=== PATIENT | male | born 1995 | race Caucasian/White ===

== ENCOUNTER 2021-12-20 17:57 | Emergency (ER) | payer OTHER ==
[~2021-12-20] VITALS: Ht 175.3 cm; Wt 60.8 kg
[2021-12-20 18:05] VITALS: BP_SYST 142
--- NOTE | 2021-12-20 19:10 | NUR ---
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
--- NOTE | 2021-12-20 19:15 | NUR ---
Dr Nolen evaluating patient at bedside
[2021-12-20] MEDS ORDERED: AUG875 PO (19:19)
[2021-12-20] MEDS ORDERED: IBUP-1969 PO (19:19)
[2021-12-20] MEDS ORDERED: OXYM-21 NS (19:19)
[2021-12-20 19:37] VITALS: BP_SYST 142
--- NOTE | 2021-12-20 19:39 | NUR ---
Patient given written and verbal discharge instructions and verbalizes understanding. ER MD discussed with patient the results and treatment provided. Patient in stable condition. ID arm band removed. Rx of Ibuprofen ,Augmentin, Nasal spray given. Patient educated on pain management and to follow up with PMD. Pain Scale 3/10 . Opportunity for questions provided and answered. Medication side effect fact sheet provided.
== END 2021-12-20 19:37 | disposition home or self-care (01) ==
LOC: SED 17:57
DX: S02.2XXA Fracture of nasal bones, initial encounter for closed fracture (principal); Y04.0XXA Assault by unarmed brawl or fight, initial encounter; Y93.89 Activity, other specified; Y92.89 Other specified places as the place of occurrence of the external cause; Y99.8 Other external cause status
CPT/HCPCS: 70450-TC; 70486-TC; 76376; 99284

== ENCOUNTER 2022-03-08 14:30 | Emergency (ER) | payer OTHER ==
[~2022-03-08] VITALS: Ht 175.3 cm; Wt 72.6 kg
[~2022-03-08 14:30] MED LIST: AUG875 PO; IBUP-1969 PO; OXYM-21 NS
[2022-03-08 15:08] VITALS: BP_SYST 128
[2022-03-08 16:07] LABS: BASOPHILS % (AUTO) 0.3 % (0.0-2.0); EOSINOPHILS % (AUTO) 0.3 % (0.0-4.0); HEMATOCRIT 41.5 % (36-54); LYMPHOCYTES # (AUTO) 1.1 K/uL (1.0-5.5); LYMPHOCYTES % (AUTO) 13.8 % (20.5-51.5); MEAN CORPUSCULAR VOLUME 89 fL (79.0-98.0); MONOCYTES # (AUTO) 0.5 K/uL (0.0-1.0); MONOCYTES % (AUTO) 5.8 % (1.7-9.3); NEUTROPHILS # (AUTO) 6.4 K/uL (1.8-7.7); NEUTROPHILS % (AUTO) 79.8 % (40.0-70.0); PLATELET COUNT (AUTO) 175 K/uL (130-430); RED BLOOD CELL COUNT(AUTO) 4.66 MIL/uL (4.2-6.2); RED CELL DISTRIBUTION WIDTH 13.9 % (9.0-15.0)
[2022-03-08 16:24] LABS: ANION GAP 9 (5-15); CALCIUM 10.4 mg/dL (8.4-11.0); CHLORIDE 103 mmol/L (98-107); CREATININE 0.92 mg/dL (0.55-1.30); GLUCOSE 100 mg/dL (70-99); POTASSIUM 3.7 mmol/L (3.5-5.1); UREA NITROGEN, BLOOD 10 mg/dL (8-21)
[2022-03-08 16:27] LABS: GFR AFRICAN AMERICAN 127 mL/min (>90)
[2022-03-08 16:50] LABS: ALANINE AMINOTRANSFERASE 21 U/L (12-78); ALBUMIN 4.7 g/dL (3.4-4.8); ASPARTATE AMINOTRANSFERASE 20 U/L (10-37); TOTAL BILIRUBIN 1.1 mg/dL (0.0-1.0)
[2022-03-08 18:14] VITALS: BP_SYST 135
== END 2022-03-08 18:16 | disposition home or self-care (01) ==
LOC: SED 14:30
DX: R55 Syncope and collapse (principal); R56.9 Unspecified convulsions; R42 Dizziness and giddiness; R51.9 Headache, unspecified; F12.90 Cannabis use, unspecified, uncomplicated; Z79.899 Other long term (current) drug therapy
CPT/HCPCS: 36415; 70450-TC; 71045; 76376; 80053; 84484; 85025; 93005; 99285

== ENCOUNTER 2022-06-26 13:34 | Emergency (ER) | payer OTHER ==
[~2022-06-26] VITALS: Ht 175.3 cm; Wt 65.3 kg
[2022-06-26 13:48] VITALS: BP_SYST 137
[2022-06-26] MEDS ORDERED: LIDO700A30 TP (16:25)
[2022-06-26 17:44] VITALS: BP_SYST 137
== END 2022-06-26 17:44 | disposition home or self-care (01) ==
LOC: SED 13:34
DX: S20.212A Contusion of left front wall of thorax, initial encounter (principal); Z79.899 Other long term (current) drug therapy; V48.5XXA Car driver injured in noncollision transport accident in traffic accident, initial encounter; Y93.89 Activity, other specified; Y92.89 Other specified places as the place of occurrence of the external cause; Y99.8 Other external cause status
CPT/HCPCS: 71100; 99283